=== PATIENT | female | born 1995 | race Caucasian/White ===

== ENCOUNTER 2023-09-05 13:11 | Outpatient (CLI) | payer MEDICAID, SELFPAY ==
--- NOTE | 2023-09-05 13:11 | US_ITS ---
PROCEDURE: US TRANSVAGINAL CLINICAL INDICATION: lower left quadrant pain COMPARISON: No exams were available for comparison FINDINGS: Transvaginal sonographic images of the pelvis were obtained. UTERUS: 7.5cm x 4.8 cmx 3.7 cm anteverted with a combined endometrial thickness of 5.3mm. A scar is seen. There is a small amount of fluid in the cervix. LEFT OVARY: 3.2cmx4.4cmx3.4cm with a volume of 24.8ml. There is a follicle in the left ovary measuring 2.2 cm x 2 cm x 2.5 cm. It has a lacy appearance consistent with a hemorrhagic cyst. RIGHT OVARY: 2.7 cmx 3.0cmx3.2cm with a volume of 12.9ml. There are multiple peripheral follicles consistent with a polycystic ovary. Both ovaries are seen and appear normal. Doppler flow to both ovaries are seen. There is no fluid in the cul-de-sac. IMPRESSION: 1. Anteverted uterus normal in shape and size. There is a small amount of fluid in the cervix. 2. The endometrium is thin measuring 5.3 mm. 3. The left ovary has a hemorrhagic cyst measuring 2.5 cm. 4. The right ovary has a polycystic appearance. 5. No fluid in the cul-de-sac. Dictated by: Eusebio Carty MD 09/06/2023 09:27 Eusebio Carty MD in [place] 09/06/2023 09:27
== END 2023-09-05 23:59 | disposition home or self-care (01) ==
LOC: RAD 13:11
PROVIDERS: PCP Nurse Practitioner Family; Visit Provider Obstetrics & Gynecology
DX: R10.32 Left lower quadrant pain (principal)
CPT/HCPCS: 76830

== ENCOUNTER 2023-10-30 13:49 | Outpatient (CLI) | payer MEDICAID, SELFPAY ==
--- NOTE | 2023-10-30 13:50 | US_ITS ---
PROCEDURE: US TRANSVAGINAL CLINICAL INDICATION: pcos, pelvic pain , ovarian cyst COMPARISON: US US TRANSVAGINAL from 09/05/2023 FINDINGS: Transvaginal sonographic images of the pelvis were obtained. UTERUS: 7.3cm x 5cmx 3.5 cm anteverted with a combined endometrial thickness of 3.5 mm. There is a small hyperechoic area in the posterior endometrium that was seen on the previous examination. It has not changed in size. A scar is seen. LEFT OVARY: 3.3cmx1.9 cmx2.1cm with a volume of 6.7ml. There are multiple small peripheral follicles. There are small calcifications that could possibly be endometriosis. The previously described hemorrhagic cyst has now completely resolved. RIGHT OVARY: 4.9 cmx 4.5 cmx3.0cm with a volume of 34.7ml. There is a hemorrhagic cyst with a lacy appearance that measures 3.1 cm x 2.6 cm X 2.9 cm. There are multiple small peripheral follicles. There are small calcifications that could be previous endometriosis. Both ovaries are seen and appear normal. Doppler flow to both ovaries are seen. There is no fluid in the cul-de-sac. IMPRESSION: 1. Anteverted uterus normal in shape and size. The endometrium appears normal. 2. Both ovaries are seen and appear polycystic. The previously described hemorrhagic cyst on the left ovary has resolved. There is a new 3.1 cm hemorrhagic cyst on the right ovary which contains fluid with a lacy appearance. 3. No fluid in the cul-de-sac Dictated by: Eusebio Carty MD 10/30/2023 17:15 Eusebio Carty MD in [place] 10/30/2023 17:15
== END 2023-10-30 23:59 | disposition home or self-care (01) ==
LOC: RAD 13:50
PROVIDERS: PCP Nurse Practitioner Family; Visit Provider Obstetrics & Gynecology
DX: R10.2 Pelvic and perineal pain (principal); E28.2 Polycystic ovarian syndrome
CPT/HCPCS: 76830

== ENCOUNTER 2024-09-29 14:00 | Outpatient (RCR) | payer MEDICAID, SELFPAY | END 2024-09-29 23:59 | disposition home or self-care (01) | LOC: PT 14:00 | PROVIDERS: PCP Nurse Practitioner Family; Visit Provider Nurse Practitioner Family | DX: G89.29 Other chronic pain (principal); M25.511 Pain in right shoulder | CPT/HCPCS: 97110; 97163 ==

== ENCOUNTER 2024-10-25 16:00 | Outpatient (RCR) | payer MEDICAID, SELFPAY | END 2024-10-26 08:49 | disposition home or self-care (01) | LOC: PT.CARL 16:00 | PROVIDERS: PCP Nurse Practitioner Family; Visit Provider Nurse Practitioner Family | DX: M25.511 Pain in right shoulder (principal) | CPT/HCPCS: 97110; 97530 ==

== ENCOUNTER 2025-01-31 07:48 | Outpatient (CLI) | payer OTHER, SELFPAY ==
--- OUTSIDE RECORDS SUMMARY | 2025-01-31 07:49 | XMS_ITS | Encounter Summary ---
Author Organization Healthcare Address [address] [place] [address] Care Team Providers Care Oil Change Technician Name Role Phone Unavailable Primary Care Provider Unavailabl e Reason for Referral * Consultation (Routine) - Authorized Specialty Diagnoses / Procedures Referred By Contac t Referred To Contact Oral Surgery Diagnoses Extraction of tooth needed González Sharp DMD [address] [address] Phone: tel: fax: [facility] [address] [place] [address] [address] [place] [address] Phone: tel: Referral ID Status Reason Start Date Expiration Date Visits Requested Visits Authorized [id number] Authorized Specialty Services Required 11/16/2024 05/18/2026 1 1 Encounter Details Date Type Department Care Team (Late st Contact Info) Description 11/16/2024 [facility] [address] [place] [address] González Sharp DMD [address] [id number] Extraction of tooth needed (Primary Dx) Social History Tobacco Use Types Packs/Day Years Used Date Smoking Tobacco: Never Assessed Comments Unknown Sex and Gender Information Value Date Recorded Sex Assigned at Not on file Legal Sex Female 7:59 PM EDT Gender Identity Not on file Sexual Orientation Not on file documented as of this encounter Plan of Treatment Scheduled Referrals Name Type Priority Associated Diagnoses Order Schedule Ambulatory referral to Oral Maxillofacial Surgery Outpatient Referral Routine Extraction of tooth needed Ordered: 11/16/2024 documented as of this encounter Visit Diagnoses Diagnosis Extraction of tooth needed- Primary documented in this encounter
--- OUTSIDE RECORDS SUMMARY | 2025-01-31 07:49 | XMS_ITS | Clinical Summary ---
Author Organization Healthcare Address [address] [place] [address] Care Team Providers Care Neurology Nurse Name Role Phone Unavailable Primary Care Provider Unavailabl e Encounters Date Type Department Care Team Description 11/16/2024 [facility] Orders Community Practice [address] [place] [address] González Sharp, DMD Extraction of tooth needed (Primary Dx) from Last 3 Months Social History Tobacco Use Types Packs/Day Years Used Date Smoking Tobacco: Never Assessed Comments Unknown Sex and Gender Information Value Date Recorded Sex Assigned at Not on file Legal Sex Female 7:59 PM EDT Gender Identity Not on file Sexual Orientation Not on file Plan of Treatment Not on file
--- OUTSIDE RECORDS SUMMARY | 2025-01-31 07:49 | XMS_ITS | Clinical Summary ---
[facility] [address] [place] [address] Care Team Providers Care Wood Router Name Role Phone Zuly Villegas APRN Primary Care Provider [phone] Allergies No known active allergies Medications citalopram (CeleXA) 10 MG tablet Take 2 tablets by mouth Daily. Active metFORMIN ER (GLUCOPHAGE-XR) 500 MG 24 hr tablet Take 1 tablet by mouth Daily With Breakfast. Active amLODIPine (NORVASC) 10 MG tablet Take 1 tablet by mouth Daily. Active spironolactone (ALDACTONE) 100 MG tablet Take 1 tablet by mouth Daily. Active cloNIDine (CATAPRES) 0.1 MG tablet Take 1 tablet by mouth 2 (Two) Times a Day. Active metoprolol succinate XL (TOPROL-XL) 25 MG 24 hr tablet Take 1 tablet by mouth Daily. Active norethindrone (MICRONOR) 0.35 MG tablet Take 1 tablet by mouth Daily. Active Active Problems No known active problems Family History Medical History Relation Name Comments Diabetes Brother Cirrhosis Father No Known Problems Maternal Grandfather No Known Problems Maternal Grandmother No Known Problems Mother COPD Paternal Grandfather Dementia Paternal Grandmother Diabetes Paternal Grandmother Hypertension Paternal Grandmother Diabetes Sister Pancreatitis Sister Relation Name Status Comments Brother Alive Father Alive Maternal Grandfather Maternal Grandmother Mother Paternal Grandfather Paternal Grandmother Alive Sister Social History Tobacco Use Types Packs/Day Years Used Date Smoking Tobacco: Every Day Cigarettes 0.5 11.7 Started: 2013 Smokeless Tobacco: Never Tobacco Cessation:Ready to Q uit: No; Counseling Given: Yes Alcohol Use Standard Drinks/Week Comments Never 0 (1 standard drink = 0.6 oz pur e alcohol) Abuse Screen Answer Date Recorded Unsafe at Home or Work/School Not on file Feels Threatened by Someone? Not on file 07/2023 Does Anyone Keep You from Co ntacting Others or Doint Things Outside the Home? Not on file 12/06/2023 Physical Sign of Abuse Present Not on file 0 12/06/2023 Housing Stability Answer Date Recorded Current Living Arrangements Not on file 02/02 Potentially Unsafe Housing Conditions Not on jose e 02/12/2023 Family and Community Support Answer Roberto e Recorded Help with Day-to-Day Activities Not on file 02/12/2023 Lonely or Isolated Not on file 02/12/2023 Employment Answer Date Recorded Do you want help finding or keeping work or a eugene b? Not on file 02/12/2023 Disabilities Answer Date Recorded Concentrating, Remembering, or Making Decisions Difficulty Not on file 02/12/2023 Doing Errands Independently Difficulty Not on fi le 02/12/2023 Education Answer Date Recorded Help with school or training? Not on file Preferred Language Not on file 02/12/2023 Comments No Sex and Gender Information Value Date Recorded Sex Assigned at Not on file Legal Sex Female 10:43 AM EDT Gender Identity Not on file Sexual Orientation Not on file Last Filed Vital Signs Vital Sign Reading Time Taken Comments Blood Pressure 153/91 12/27/2022 2:47 PM EDT Pulse 88 12/27/2022 2:47 PM EDT Temperature 36.6 C (97.8 F) 12/27/2022 2:47 PM EDT Respiratory Rate 20 12/27/2022 2:47 PM EDT Oxygen Saturation 97% 12/27/2022 2:47 PM EDT ra Inhaled Oxygen Concentration - - Weight 105 kg (231 lb 7.7 oz) 01/10/2023 2:05 PM EDT Height 157.5 cm (5' 2.01 ) 01/10/2023 2:05 PM ED T Body Mass Index 42.33 01/10/2023 2:05 PM EDT Plan of Treatment Health Maintenance Due Date Last Done Comments Annual Gynecologic Pelvic and Breast Exam 1995 Pneumococcal Vaccine 0-49 (1 of 2 - PCV) 2015 ANNUAL PHYSICAL 12/10/2022 HEPATITIS C SCREENING 12/10/2022 INFLUENZA VACCINE 12/03/2024 TDAP/TD VACCINES (2 - Td or Tdap) 10/22/2032 023 Insurance [employer] Care Teams Wood Router Relationship Specialty Start Date End Date Zuly Villegas APRN [facility] [place], [place] [id number] PCP - General Nurse Practitioner 12/03/22
--- NOTE | 2025-01-31 07:51 | MR_ITS ---
FINAL REPORT CLINICAL HISTORY: right shoulder pain from injury when playing volleyball arthogram COMPARISON: none FINDINGS: Multi planar MR imaging of the right shoulder was performed. The supraspinatus tendon appears intact. There is no abnormal fluid in the subacromial/subdeltoid bursa. The anterior and posterior glenoid kash appear intact. The biceps tendon appears intact. The acromioclavicular joint appears intact. IMPRESSION: No evidence of significant internal derangement. Reviewed, Interpreted and Dictated by Quintin Chapin MD Transcribed by Quiana Zuniga Authenticated and [facility]
--- NOTE | 2025-01-31 07:51 | IR_ITS ---
FINAL REPORT CLINICAL HISTORY: RT SHOULDER PAIN 5.88 MGY 0.12 FLUORO TIME FINDINGS: Arthrogram Shoulder injection for MRI arthrogram HISTORY:Shoulder pain. PROCEDURE: After informed consent was obtained, a time-out was performed. Utilizing local anesthesia and sterile technique, with direct fluoroscopic guidance, access to the joint was obtained . A small amount of contrast was injected to confirm needle tip location. Additional gadolinium contrast was injected. IMPRESSION: Status post injection for MRI arthrogram without immediate complication. Please see MRI report. Fluoroscopy time: 0.12 minutes Radiation exposure in Reference air Kerma: 5.88 mGy Reviewed, Interpreted and Dictated by Samm Mansfield MD Transcribed by SARAH Mcdonald Authenticated and [facility]
[2025-01-31] MEDS: GADOTERIDOL INJ 10ML SYRINGE IV (08:36)
[2025-01-31] MEDS: IOPAMIDOL-300 (61%) 100ML VIAL 20 ML IV (08:37)
== END 2025-01-31 23:59 | disposition home or self-care (01) ==
LOC: RAD 07:48
PROVIDERS: PCP Nurse Practitioner Family; Visit Provider Physician Assistant
DX: S49.91XA Unspecified injury of right shoulder and upper arm, initial encounter (principal); M25.511 Pain in right shoulder; Y93.68 Activity, volleyball (beach) (court)
CPT/HCPCS: 73040; 73222; A9576; Q9967

== ENCOUNTER 2025-03-03 22:05 | Emergency (ER) | payer OTHER, SELFPAY ==
--- OUTSIDE RECORDS SUMMARY | 2025-01-17 06:04 | XMS_ITS | Continuity of Care Document ---
Author Organization [facility] Phone Care Team Providers Care Lumite Injector Name Role Phone MODE REYNOLDS Primary Care KATHY RIOS Admitting KATHY RIOS Unavailable KATHY RIOS Primary Attending RESULTS Patient: LUIS M ROMEO Date of : 1995 LABORATORY RESULTS Information is not available LABORATORY NARRATIVE RESULTS Information is not available RADIOLOGY RESULTS ORDER 100: SHLDR 3V RT (LOIN C: [id number]) ORDER DATE: January 13, 2025 3:29:00 PM [facility] PERFORMING LAB: [address] [id number] Final Result Date: January 13, 2025 3:34:[address] [place] [address] Name: OUSMANE ASENCIO Exam Date: 01/13/2025 : 1995 Age 29 years Gender: F Physician: KATHY RIOS Facility: [facility] Facility HSV: Outpatient Exam: SHLDR 3V RT Procedure: XR SHOULDER 2 OR MORE VIEWS RIGHT Exam Date: 01/13/2025 10:34 AM CDT Indication: pain Technique: Three radiographic views of the RIGHT shoulder are presented. Comparison: None. FINDINGS: No acute displaced fractures. No periosteal reaction. The glenohumeral, acromioclavicular and coracoclavicular joints are preserved. Bone density is normal for age. Soft tissues are unremarkable. The visualized portion of the adjacent lung is well aerated. IMPRESSION: No acute fractures or dislocation. Electronically signed by: Rina Andersen MD 01/13/2025 02:08 PM EDT Dictated By: Rina Andersen Transcribed By: Transcribed On: 01/13/2025 11:34 AM Electronically signed by: Rina Andersen 01/13/2025 Thank you for referring OUSMANE ASENCIO to [facility]. Legally authenticated by GIL PERDUE MD 2025-01-13 11:34:27 PATHOLOGY NARRATIVE RESULTS Information is not available MICROBIOLOGY RESULTS No Micro Labs/Results Exist for Patient BLOOD ADMIN RESULTS Information is not available MEDICATIONS HOME MEDICATIONS Status RXNORM NDC Medication Dose Route Frequency Dates Comments Reported By Updated By Drug Treatment Unknown DISCHARGE MEDICATIONS Status RXNORM NDC Medication Dose Route Frequency Dates Dis pense Data Comments Physician Updated By No Discharge Medication Info rmation Available INPATIENT MEDICATIONS Status RXNORM NDC Medication Dose Route Frequency Rat e Quantity Dates Indication Dispense Data Comments Physician Updated By No Inpatient Medication Info rmation Available SOCIAL HISTORY SOCIAL HISTORY - Smoking Status SNOMED-CT Social History Element Description Effective Dates Offered Cessation Comment Updated By [id number] Smoking Status Unknown If Ever Smoked SOCIAL HISTORY - Gender Sex: Female SOCIAL HISTORY - Status : status i nformation is not available Intention in Next Year: intention information is not available SOCIAL HISTORY - Assessments Code System Description Status Date Value of Assessment Updated By Comment Assessment Information is no t available SOCIAL HISTORY - Jackson Affiliation Jackson information is not av ailable SOCIAL HISTORY - Legal Sex Legal Sex information is not available SOCIAL HISTORY - Sexual Behavior Sexual Orientation Gender Identity SNOMED-CT Description SNO MED -CT Description Activity Level No of Partners Partner Type UpdatedBy Information is not available SOCIAL HISTORY - Occupation Occupation information is no t available HEALTH CONCERNS Problems Concern Status Health Concern problem infor mation not available. Smoking Status Status Years Used Consumed packs p er day Health Concern smoking histo ry information not available. Family History Concern Status Health Concern family histor y information not available. ENCOUNTERS ENCOUNTER INFORMATION Reason for Visit M25.511 Admission January 13, 2025 3:12:00 PM [place] [facility] [address] [address] Discharge January 13, 2025 3:12:00 PM [place] [facility] DISCHARGED TO HOME OR SELF CARE ENCOUNTER DIAGNOSES Notes information is not julio cesar ilable. Code System Diagnosis Onset Date Diagnosis information is not available. ABSTRACT DIAGNOSES Code System Diagnosis Updated By Abatement Date M25.511 ICD10 PAIN IN RIGHT SHOULDER [id number] on January 17, 2025 10:04:30 AM UTC M25.511 ICD10 PAIN IN RIGHT SHOULDER [id number] on January 17, 2025 10:04:33 AM UTC CARE TEAM Care Lumite Injector Role MODE REYNOLDS Primary Care KATHY RIOS Admitting KATHY RIOS Referring KATHY RIOS Primary Attending CARE TEAM CARE locomotive electrician Role on Team Location Telecom Status Start Date End Roberto e Updated By GAIL GARCIA PCP normal January 13, 2025 4:00:00 AM [place] January 13, 2025 3:12:00 PM [facility] [id number] on January 13, 2025 3:14:24 PM [facility] GABRIEL CHAVEZ MD Referring normal January 13, 2025 4:00:00 AM [facility] January 13, 2025 3:12:00 PM [facility] [id number] on January 13, 2025 3:14:24 PM [facility] GABRIEL CHAVEZ MD Attending normal January 13, 2025 4:00:00 AM [facility] January 13, 2025 3:12:00 PM [place] [id number] on January 13, 2025 3:14:24 PM [facility] GABRIEL CHAVEZ MD Admitting normal January 13, 2025 4:00:00 AM [facility] January 13, 2025 3:12:00 PM [facility] [id number] on January 13, 2025 3:14:24 PM [facility]
[2025-03-03 22:07] VITALS: BP 140/90; PULSE 92; RESP 16; TEMP 36.6; O2SAT 96; BMI 40.2
[2025-03-03 22:08] VITALS: BP 142/89; PULSE 93; RESP 16; TEMP 37.1; O2SAT 95
--- NOTE | 2025-03-03 22:09 | PC.NURSE ---
Pt splashed blood in her left eye
--- NOTE | 2025-03-03 22:10 | PC.NURSE ---
Awake alert and oriented Skin pink warm and dry Resp full and easy Speech clear and appropriate eye flushed iimmediately after incident
--- NOTE | 2025-03-03 22:23 | HMH.EDGENADL ---
Discharge Plan Disposition Chief Complaint: PAIN Prescriptions Prescriptions: No Action citalopram 20 mg tablet 20 mg PO DAILY metoprolol succinate 25 mg tablet extended release 24 hr 25 mg PO DAILY clonidine HCl 0.1 mg tablet 0.1 mg PO DAILY Patient Comments: TAKE ONE TABLET BY MOUTH EVERY DAY IN THE MORNING norethindrone (contraceptive) [Jacey] 0.35 mg tablet 0.35 mg PO DAILY amlodipine 10 mg tablet 10 mg PO DAILY spironolactone 100 mg tablet 100 mg PO DAILY Ozempic 0.25 mg or 0.5 mg (2 mg/3 mL) pen injector SQ Patient Comments: INJECT 0.25 MG WEEKLY SUBCUTANEOUSLY FOR DIABETES Referrals Follow up/Referrals: Zuly Villegas [Primary Care Provider, Medical] - See instructions Print Language Print Language: Luxembourgish Discharge ED Provider: Nia Stone Adult HPI General Chief complaint: PAIN Stated complaint: AO 10-30 blood in eye Time Seen by Provider: 03/03/25 22:23 Mode of Arrival: Ambulatory Source of Information: Patient Description of Symptoms (Recalled from ER Triage Doc. by RN): exposure to blood History of Present Illness HPI narrative: Patient is a 29-year-old female with no significant past medical history who presented to the emergency department after healthcare exposure. Patient was removing an IV from a patient when blood splattered in her eye. Patient immediately irrigated her eye. Patient is denying any visual complaints. Patient notified her charge nurse and protocol was followed. Related Data Home Medications ?Medication ?Instructions ?Recorded ?Confirmed amlodipine 10 mg tablet 10 mg PO DAILY 03/13/23 09/04/23 citalopram 20 mg tablet 20 mg PO DAILY 03/13/23 09/04/23 clonidine HCl 0.1 mg tablet 0.1 mg PO DAILY 03/13/23 09/04/23 metoprolol succinate 25 mg 25 mg PO DAILY 03/13/23 09/04/23 tablet,extended release 24 hr norethindrone (contraceptive) 0.35 0.35 mg PO DAILY 03/13/23 09/04/23 mg tablet (Jacey) spironolactone 100 mg tablet 100 mg PO DAILY 03/13/23 09/04/23 semaglutide 0.25 mg or 0.5 mg (2 mg SQ 09/04/23 09/04/23 mg/3 mL) subcutaneous pen injector (Ozempic) Allergies Allergy/AdvReac Type Severity Reaction Status Date / Time adhesive tape Allergy Severe rash, Verified 09/04/23 11:24 blisters [facility] Disclaimer: The information contained in this section may have been updated after the patient was seen, as this information can be updated by other users. Medical History (Updated 09/04/23 @ 11:25 by FAN Andrew) History of abnormal cervical Pap smear Tobacco use Hirsutism Morbid obesity with BMI of 40.0-44.9, adult Hx LEEP (loop electrosurgical excision procedure), cervix, Endometriosis determined by laparoscopy Tears of meniscus and ACL of left knee Surgical History (Updated 09/04/23 @ 11:27 by FAN Andrew) History of delivery H/O dilation and curettage [place] teeth removed Family History Other Alcoholism Diabetes FHx: mental illness Hypertension Substance abuse Social History Smoking Status: Current every day smoker alcohol intake: never substance use type: denies use current occupational status: employed Travel in the last 8 weeks?: None ROS Obtained: Yes All systems reviewed & no additional complaints except as documented and Yes Systems reviewed as appropriate & no additional complaints except as documented Physical Exam General General appearance: alert and in no apparent distress Head Head exam: atraumatic, normocephalic and normal inspection Eye Eye exam: Present normal appearance, PERRL and EOMI; Absent scleral icterus ENT ENT exam: Present normal exam and normal external ear exam Neck Neck exam: Present normal inspection and full ROM Chest Chest inspection: Present normal inspection and symmetric chest wall rise Respiratory Respiratory exam: Present normal lung sounds bilaterally; Absent respiratory distress or wheezes Cardiovascular Cardiovascular exam: Present regular rate, normal rhythm and normal heart sounds Abdominal Exam Abdominal exam: Present soft and distention; Absent tenderness, guarding or rebound Extremities Exam Extremities exam: Present normal inspection and full ROM Back Exam Back exam: Present normal inspection and full ROM Neurological Exam Neurological exam: Present alert and oriented X3 Psychiatric Psychiatric exam: Present normal affect and normal mood Skin Skin exam: Present warm and dry Medical Decision Making Medical Records Medical records reviewed: Yes I reviewed the patient's medical records. Screening: Per USPSTF and CDC recommendations, given the prevalence of disease in our region, it is our hospital?s policy to screen for HIV and viral Hepatitis for all patients aged 18 and over and those with ongoing risk factors. Maximus Inquiry Pt receiving controlled substance: No Vital Signs: 03/03/25 22:07 Temperature 98 F Temperature Source Oral Pulse Rate [Left Radial] 92 H Respiratory Rate 16 Blood Pressure [Right Arm] 140/90 Blood Pressure Mean [Right Arm] 106 Blood Pressure Source [Right Arm] Automatic Cuff Blood Pressure Position [Right Arm] Sitting 02 Sat by Pulse Oximetry 96 Oxygen Delivery Method Room Air Lab Data Lab results reviewed: Yes I reviewed the patient's lab results. Orders (Tests/Meds): ORDERS Category Date Time Status HIV Combo Stat Lab 03/03/25 22:09 Ordered Hepatitis C Ab Qual. W/ RFX Stat Lab 03/03/25 22:09 Ordered Medical Decision Narrative: Patient is a 29-year-old female with no significant past medical history who presented to the emergency department after healthcare exposure. Patient was exposed to blood in her left eye after removing an IV from a patient. Patient immediately notified the charge nurse, protocol was followed. Patient denies any vision changes or difficulty seeing. Patient denies any pain. Patient medially irrigating the eye. Work was drawn from the patient. Differential includes but not limited to: Eye irritation, healthcare exposure, blood-borne infection, corneal abrasion, amongst others. Paperwork was filled out and patient was otherwise discharged home in stable condition return precautions were discussed. Critical Care Critical Care Time Critical Care Time: No
[2025-03-03 23:03] LABS: Hematocrit 43.7 % (37.0-47.0); Hemoglobin 15.5 g/dL (12.2-16.2); Immature Granulocytes % 0.6 %; Mean Corpuscular HGB Conc 35.5 g/dL (31.8-35.4); Mean Corpuscular Hemoglobin 31.8 pg (27.0-31.2); Mean Corpuscular Volume 89.7 fl (81-99); Nucleated Red Blood Cells % 0 %; Platelet Count 355 K/mm3 (142-424); Red Blood Count 4.87 M/mm3 (4.20-5.40); Red Cell Distribution Width-SD 39.0 fL; White Blood Count 18.9 K/mm3 (4.8-10.8)
[2025-03-03 23:04] VITALS: BP 139/87; PULSE 89; RESP 14; TEMP 36.7; O2SAT 98
[2025-03-03 23:04] LABS: Albumin Level 3.6 g/dl (3.5-5.0)
[2025-03-03 23:07] LABS: Alanine Aminotransferase 43 U/L (12-78); Alkaline Phosphatase 75 U/L (38-126); Aspartate Amino Transferase 30 U/L (14-36); Bilirubin,Direct 0.0 mg/dl (0.0-0.4); Bilirubin,Indirect 0.3 mg/dL (0.0-0.9); Bilirubin,Total 0.3 mg/dl (0.2-1.3); Bilirubin,Unconjugated 0.5 mg/dL (0.0-1.1); Total Protein,Serum 7.8 g/dl (6.3-8.2)
[2025-03-03 23:10] LABS: Amphetamine/Metha Screen,Urine Negative ng/ml (<1000)
[2025-03-03 23:11] LABS: Barbiturates Screen,Urine Negative ng/ml (<200)
[2025-03-03 23:12] LABS: Activated Partial Thrombo Time 26.3 seconds (22.8-30.6); INR 0.93 (0.9-1.1); Prothrombin Time 10.4 seconds (10.1-12.5)
[2025-03-03 23:12] LABS: Benzodiazepines Screen,Urine Negative ng/ml (<200)
[2025-03-03 23:13] LABS: Methadone Screen,Urine Negative ng/ml (<300)
[2025-03-03 23:14] LABS: Opiate Screen,Urine Negative ng/ml (<300)
[2025-03-03 23:15] LABS: Phencyclidine Screen,Urine Negative ng/ml (<25)
--- OUTSIDE RECORDS SUMMARY | 2025-03-03 23:44 | XMS_ITS | Clinical Summary ---
[facility] Address [address] [place] [address] Care Team Providers Care Stone Chimney Mason Name Role Phone Zuly Villegas APRN Primary Care Provider [phone] Allergies No known active allergies Medications citalopram [...] Date Smoking Tobacco: Every Day Cigarettes 0.5 11.8 Started: 2013 Smokeless Tobacco: Never Tobacco Cessation:Ready [...] 10/22/2032 023 Insurance [employer] Care Teams Stone Chimney Mason Relationship Specialty Start Date End Date Zuly Villegas APRN [facility] [place], [place] [id number] PCP - General Nurse Practitioner 12/03/22
--- OUTSIDE RECORDS SUMMARY | 2025-03-03 23:44 | XMS_ITS | Clinical Summary ---
Author Organization Healthcare Address [address] [place] [address] Care Team Providers Care Rn Cvicu Name Role Phone Unavailable Primary Care Provider Unavailabl e Social History Tobacco Use Types Packs/Day Years Used Date Smoking Tobacco: Never Assessed Comments Unknown Sex and Gender Information Value Date Recorded Sex Assigned at Not on file Legal Sex Female 7:59 PM EDT Gender Identity Not on file Sexual Orientation Not on file Plan of Treatment Not on file
--- OUTSIDE RECORDS SUMMARY | 2025-03-03 23:44 | XMS_ITS | Encounter Summary ---
Author Organization Healthcare Address [address] [place] [address] Care Team Providers Care Anesthesia Tech Name Role Phone Unavailable Primary Care Provider Unavailabl e Reason for Referral * Consultation (Routine) - Authorized Specialty Diagnoses / Procedures Referred By Contac t Referred To Contact Oral Surgery Diagnoses Extraction of tooth needed González Sharp DMD [address] [place] [address] Phone: tel: fax: [facility] director [facility] [address] [place] [address] [address] [place] [address] Phone: tel: Referral ID Status Reason Start Date Expiration Date Visits Requested Visits Authorized [id number] Authorized Specialty Services Required 11/16/2024 05/18/2026 1 1 Encounter Details Date Type Department Care Team (Late st Contact Info) Description 11/16/2024 [facility] [address] [place] [address] González Sharp DMD [address] [id number] Extraction of tooth needed (Primary Dx) Social [...]
[2025-03-03 23:48] LABS: RBC Morphology Normal; Total Cells Counted 100
[2025-03-05 08:25] LABS: Hep B Surface Ab, Qual Non Reactive (.); Hepatitis B Surface Antigen Negative (Negative); Hepatitis C Antibody Non Reactive (Non Reactive)
== END 2025-03-03 23:04 | disposition home or self-care (01) ==
LOC: ER 23:43
PROVIDERS: Emergency Provider Student in an Organized Health Care Education/Training Program; PCP Nurse Practitioner Family
DX: T65.891A Toxic effect of other specified substances, accidental (unintentional), initial encounter (principal); Z57.8 Occupational exposure to other risk factors
CPT/HCPCS: 80076; 80307; 85007; 85025; 85027; 85610; 85730; 86706; 86803; 87340; 87389; 99282